=== PATIENT | male | born 1965 | race Asian ===

== ENCOUNTER 2017-08-04 21:24 | Inpatient (IN) | payer OTHER ==
[~2017-08-04] VITALS: Ht 162.6 cm; Wt 56.5 kg
[~2017-08-04 21:24] MED LIST: EPINEPHRINE SYRINGE 0.1 MG/ML, 10ML ONE; SODIUM BICARB 8.4%, 50ML SYRINGE ONE; SUCCINYLCHOLINE 20 MG/ML, 10ML ONE
[2017-08-04] MEDS ORDERED: NOREPINEPHRINE 4 MG in SODIUM CHLORIDE 0.9% 246 ML IV PRN ×2 (21:34→22:00)
[2017-08-04] MEDS ORDERED: SODIUM CHLORIDE 0.9% 1,000 ML IV ONE (21:34)
[2017-08-04 21:44] LABS: MEAN CORPUSCULAR HEMOGLOBIN 34.9 pg (27.5-34.5); MEAN CORPUSCULAR HGB CONC 32.4 g/dL (33.2-36.2); MEAN CORPUSCULAR VOLUME 107.9 fL (81-97); MEAN PLATELET VOLUME 7.4 fL (7.4-10.4); PLATELET COUNT 235 x10^3/uL (130-400); RED BLOOD COUNT 2.45 x10^6/uL (4.38-5.82); RED CELL DISTRIBUTION WIDTH 12.8 % (9.4-14.8)
[2017-08-04 21:50] LABS: INTERNATIONAL NORMALIZED RATIO 1.11 (0.93-1.1); PROTHROMBIN TIME 11.4 Seconds (9.6-11.5)
[2017-08-04 21:53] LABS: ALANINE AMINOTRANSFERASE 199 U/L (12-78); ALBUMIN 1.9 g/dL (3.4-5.0); ANION GAP 22 mmol/L (5-15); CALCIUM 6.7 mg/dL (8.5-10.1); CHLORIDE 86 mmol/L (98-107); CREATININE 2.39 mg/dL (0.7-1.3)
[2017-08-04 21:57] LABS: ALKALINE PHOSPHATASE 64 U/L (45-117); TOTAL PROTEIN 5.4 g/dL (6.4-8.2); TROPONIN I 0.034 ng/mL (0.000-0.045)
[2017-08-04 21:58] LABS: MD YES
[2017-08-04] MEDS ORDERED: VANCOMYCIN PMX 1GM/200ML 200 ML IVPB ONE (22:00)
[2017-08-04] MEDS ORDERED: VANCOMYCIN PER PHARMACY IV ONE (22:00)
[2017-08-04] MEDS ORDERED: SODIUM CHLORIDE 0.9% 1,000ML IVBOLUS ONE ×2 (22:00→22:30)
[2017-08-04] MEDS ORDERED: VANCOMYCIN 1,000 MG in SODIUM CHLORIDE 0.9% 250 ML IV ONE (22:00)
[2017-08-04] MEDS ORDERED: PIPERACILLIN/TAZO/PMX 3.375GM 50 ML IVPB ONE (22:00)
[2017-08-04] MEDS ORDERED: SODIUM CHLORIDE FLUSH 10ML SYR IVF ONE (22:00)
[2017-08-04 22:04] LABS: BAND#(MANUAL) 1.12 x10^3/uL; BANDS%(MANUAL) 33 % (0-7); LYMPH#(MANUAL) 1.02 x10^3/uL (1-3.4); LYMPHS% (MANUAL) 30 % (22-44); MONOS#(MANUAL) 0.17 x10^3/uL (0.3-2.7); MONOS% (MANUAL) 5 % (2-9); MYELOCYTES# (MANUAL) 0.03 x10^3/uL (0-0); MYELOCYTES% (MANUAL) 1 % (0-0); SEG#(MANUAL) 1.05 x10^3/uL (1.8-6.8); SEGS% (MANUAL) 31 % (42-75)
[2017-08-04 22:06] LABS: POLYCHROMASIA 1+
[2017-08-04 22:07] LABS: <PLATELET ESTIMATE> ADEQUATE; <PLT MORPHOLOGY> NORMAL PLT MORPH; ANISOCYTOSIS 1+
[2017-08-04] MEDS ORDERED: PHENYLEPHRINE 10 MG in SODIUM CHLORIDE 0.9% 249 ML IV PRN (22:07)
[2017-08-04] MEDS ORDERED: PANTOPRAZOLE 80 MG in SODIUM CHLORIDE 0.9% 100 ML IV SCH (22:13)
[2017-08-04] MEDS ORDERED: PIPERACILLIN/TAZO/PMX 3.375GM 50 ML ONE (22:27)
[2017-08-04] MEDS ORDERED: PANTOPRAZOLE 40 MG IV ONE (22:27)
[2017-08-04] MEDS ORDERED: AZITHROMYCIN 500 MG in SODIUM CHLORIDE 0.9% 250 ML IV ONE (22:30)
[2017-08-04] MEDS ORDERED: PANTOPRAZOLE 40 MG IV IVPush ONE (22:30)
[2017-08-04] MEDS ORDERED: PLEASE ENTER ALLERGIES MC SCH (22:30)
[2017-08-04] MEDS ORDERED: SODIUM BICARB 8.4%, 50ML SYRINGE IVPush ONE (22:30)
[2017-08-04] MEDS ORDERED: SODIUM CHLORIDE 0.9% 1,000 ML IV SCH (23:05)
[2017-08-04] MEDS: VASOPRESSIN 100 UNIT in SODIUM CHLORIDE 0.9% 495 ML IV PRN (23:05)
[2017-08-04] MEDS ORDERED: AZITHROMYCIN 500 MG in SODIUM CHLORIDE 0.9% 250 ML IV SCH (23:30)
[2017-08-04] MEDS ORDERED: ONDANSETRON 2MG/ML, 2ML IVPush PRN (23:30)
[2017-08-04] MEDS ORDERED: PIPERACILLIN/TAZO/PMX 3.375GM 50 ML IV SCH (23:30)
[2017-08-04] MEDS ORDERED: SULFAMETH./TRIMETHOPRIM 20 ML in DEXTROSE 5% 500 ML IV ONE (23:30)
[2017-08-04] MEDS ORDERED: PHENYLEPHRINE 20 MG in SODIUM CHLORIDE 0.9% 248 ML IV PRN (23:30)
[2017-08-04] MEDS ORDERED: LORazepam 2 MG/ML, 1ML IVPush PRN (23:30)
[2017-08-04] MEDS ORDERED: VANCOMYCIN PER PHARMACY MC PRN (23:30)
[2017-08-04 23:40] VITALS: BP 82/44
[2017-08-04] MEDS ORDERED: NOREPINEPHRINE 8 MG in SODIUM CHLORIDE 0.9% 242 ML IV PRN (23:45)
[2017-08-04] MEDS ORDERED: EPINEPHRINE SYRINGE 0.1 MG/ML, 10ML ONE (23:57)
[2017-08-04] MEDS ORDERED: CODE BLUE RESPONSE XX ONE (23:57)
[2017-08-04] MEDS ORDERED: ETOMIDATE 20 MG/10 ML ONE (23:57)
[2017-08-05] MEDS ORDERED: PANTOPRAZOLE 80 MG in SODIUM CHLORIDE 0.9% 100 ML IV SCH
[2017-08-05] MEDS: VASOPRESSIN 100 UNIT in SODIUM CHLORIDE 0.9% 495 ML IV PRN ×2 (00:12→01:15)
[2017-08-05] MEDS ORDERED: PHENYLEPHRINE 40 MG in SODIUM CHLORIDE 0.9% 246 ML IV PRN (00:31)
[2017-08-05] MEDS ORDERED: SODIUM BICARB 8.4%, 50ML SYRINGE IVPush ONE (00:40)
[2017-08-05 00:42] LABS: % IRON SATURATION 28 % (20-55); IRON LEVEL 66 mcg/dL (65-175); TOTAL IRON BINDING CAPACITY 232 mcg/dL (250-450)
[2017-08-05 00:45] LABS: TROPONIN I 0.092 ng/mL (0.000-0.045)
[2017-08-05] MEDS ORDERED: EPINEPHRINE SYRINGE 0.1 MG/ML, 10ML ONE (01:10)
[2017-08-05] MEDS ORDERED: SODIUM CHLORIDE 0.9%, 250ML ONE (01:10)
[2017-08-05] MEDS ORDERED: EPINEPHRINE 1 MG/ML, 1ML ONE (01:10)
[2017-08-05] MEDS ORDERED: CODE BLUE RESPONSE XX ONE (01:10)
[2017-08-05] MEDS ORDERED: INSULIN LISPRO 100 UNITS/ML, PEN SQ-INSULIN SCH (07:00)
== END 2017-08-05 03:30 | disposition expired | DRG 974 ==
LOC: ED 21:35 → EDIP 23:10 → CCU 23:51
PROVIDERS: ADMIT Internal Medicine; ATTEND Internal Medicine
PROC: 5A1935Z Respiratory Ventilation, Less than 24 Consecutive Hours (ICD-10-PCS; principal; 2017-08-04)
PROC: 5A12012 Performance of Cardiac Output, Single, Manual (ICD-10-PCS; 2017-08-04)
PROC: 0BH17EZ Insertion of Endotracheal Airway into Trachea, Via Natural or Artificial Opening (ICD-10-PCS; 2017-08-04)
DX: B20 Human immunodeficiency virus [HIV] disease (principal); A41.9 Sepsis, unspecified organism; E43 Unspecified severe protein-calorie malnutrition; J96.01 Acute respiratory failure with hypoxia; K72.00 Acute and subacute hepatic failure without coma; I46.9 Cardiac arrest, cause unspecified; R65.21 Severe sepsis with septic shock; J96.02 Acute respiratory failure with hypercapnia; K92.2 Gastrointestinal hemorrhage, unspecified; E87.1 Hypo-osmolality and hyponatremia; J15.9 Unspecified bacterial pneumonia; N17.9 Acute kidney failure, unspecified; D53.9 Nutritional anemia, unspecified; R73.9 Hyperglycemia, unspecified; E87.5 Hyperkalemia; Z79.899 Other long term (current) drug therapy; Z86.11 Personal history of tuberculosis; Z68.21 Body mass index [BMI] 21.0-21.9, adult
CPT/HCPCS: 31500; 36415; 36569; 36600; 71045; 80053; 82140; 82607; 82728; 82803; 83540; 83550; 83605; 84145; 84484; 85025; 85610; 85730; 86850; 86900; 87040; 87081; 93005; 94002; 94003; 96361; 96365; 96366; 96367; 96368; 99291; J0171; J0456; J2543; J3370; C9113; J0330; J2370; J7030; J7040; J7050